=== PATIENT | male | born 1990 | race Caucasian/White ===

== ENCOUNTER 2025-05-03 21:41 | Emergency (ER) | payer OTHER, SELFPAY ==
[2025-05-03 21:44] VITALS: BP 147/77; PULSE 86; RESP 16; TEMP 36.8; O2SAT 98; BMI 26.2
--- OUTSIDE RECORDS SUMMARY | 2025-05-03 23:07 | XMS_ITS | Clinical Summary ---
Author Organization [facility] Address [address] [place] [id number] Care Team Providers Care Teletype Technician Name Role Phone Emile Dyer MD Primary Care Provider [phone] Allergies No known active allergies Medications EPINEPHrine (EPIPEN/ADRENAC LICK/OR ANY BX GENERIC EQUIV) 0.3 MG/0.3ML injection 2-packIndicatio ns:Allergy to bee sting Inject 0.3 mLs (0.3 mg) into the muscle as needed for anaphylaxis 0.6 mL 1 8 Active cetirizine (ZYRTEC) 10 MG tabletIndicatio ns:Acute seasonal allergic rhinitis due to pollen Take 1 tablet (10 mg) by mouth every evening 90 tablet 1 8 Active fluticasone (FLONASE) 50 MCG/ACT sprayIndication s:Acute seasonal allergic rhinitis due to pollen [place] 1-2 sprays into both nostrils daily 1 Bottle 11 8 Active meclizine (ANTIVERT) 25 MG tabletIndicatio ns:Labyrinthiti s of both ears Take 1 tablet (25 mg) by mouth 3 times daily as needed for dizziness 30 tablet 0 Active ondansetron (ZOFRAN) 4 MG tabletIndicatio ns:Labyrinthiti s of both ears Take 1 tablet (4 mg) by mouth every 6 hours as needed for nausea 18 tablet 0 Active sertraline (ZOLOFT) 50 MG tabletIndicatio ns:Anxiety Take 1 tablet (50 mg) by mouth daily 90 tablet 0 Active Active Problems Problem Noted Date Diagnosed Date Anxiety 05/20/2020 Acute seasonal allergic rhinitis due to pollen 0 04/25/2018 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 Immunizations Immunization Administration Dates Next Due HIB (PRP-T) 11/08/1991,06/18/1991,01/02/1991 ,1990 HepB 06/22/2004,09/16/2003,04/15/2003 Historical DTP/aP 03/19/1992,06/18/1991,01/02/19 91,1990 MMR (MMRII) 04/15/2003,11/08/1991 OPV, trivalent, live 03/19/1992,01/02/1991,10/13 TD,PF 7+ (Tenivac) 04/15/2003 TDAP Vaccine (Adacel) 04/25/2018 Family History Medical History Relation Comments Hyperlipidemia Father Coronary Artery Disease Maternal Grandfather Anxiety Disorder Mother Depression Mother Prostate Cancer Paternal Grandfather Anxiety Disorder Sister 1 No Known Problems Sister 2 Breast Cancer No family hx of Cerebrovascular Disease No family hx of Colon Cancer No family hx of Diabetes No family hx of Hypertension No family hx of Relation Status Comments Father Alive Maternal Grandfather Mother Alive Paternal Grandfather Sister 1 Alive Sister 2 Alive Social History Tobacco Use Types Packs/Day Years Used Date Smoking Tobacco: Never Smokeless Tobacco: Never Alcohol Use Standard Drinks/Week Comments No 0 (1 standard drink = 0.6 oz pur e alcohol) PHQ-2 Answer Date Recorded PHQ-2 Score 0 11/07/2018 Adolescent Education Answer Date Record ed Getting School Help Needed Not on file 08/07 Sex and Gender Information Value Date Recorded Sex Assigned at Not on file Legal Sex Male 3:17 AM [employer]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 Gender Identity Not on file Sexual Orientation Not on file Occupation Industry Job Start Date Job End Date [place] [employer] Not on file Not on file Not on file Last Filed Vital Signs Vital Sign Reading Time Taken Comments Blood Pressure 124/88 05/20/2020 11:20 AM CDT Pulse 86 05/20/2020 11:20 AM CDT Temperature 36.1 C (96.9 F) 05/20/2020 11:20 AM CDT Respiratory Rate 18 05/15/2020 9:51 AM CDT Oxygen Saturation 100% 05/20/2020 11:20 AM CDT Inhaled Oxygen Concentration - - Weight 83.9 kg (185 lb) 05/20/2020 11:20 AM CDT Height 188 cm (6' 2) 05/20/2020 11:20 AM CDT Body Mass Index 23.75 05/20/2020 11:20 AM CDT Plan of Treatment Not on file Insurance [facility] Care Teams Teletype Technician Relationship Specialty Start Date End Date Emile Dyer MD PCP - General Family Practice 04/25/18
--- OUTSIDE RECORDS SUMMARY | 2025-05-03 23:07 | XMS_ITS | Clinical Summary ---
Author Organization [facility] Address [address] [place] [id number] Care Team Providers Care Paper Steamer Name Role Phone Emile Frias MD Primary Care Provider [phone] Allergies No known active allergies Medications ADDERALL XR 10 MG 24 HR CAP take 1 capsule (10mg) by oral route once daily in the morning upon awakening 30 0 8 Active ADDERALL XR 20 MG 24 HR CAP take 1 capsule (20 mg) by oral route once daily in the morning upon awakening 30 0 8 Active EPINEPHrine (EPIPEN) 0.3 mg/0.3 mL auto-injectorI ndications:Bee sting, accidental or unintentional, initial encounter Inject 0.3 mg (1 Pen) intramuscular each time if needed for Allergic Reaction. 2 Each 1 3 Active loratadine (CLARITIN) 10 mg tabletIndicati ons:Bee sting, accidental or unintentional, initial encounter Take 1 Tablet (10 mg) by mouth once daily. 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[employer] Gender Identity Not on file Sexual Orientation Not on file Obstetrics History Last Filed Vital Signs Vital Sign Reading Time Taken Comments Blood Pressure 147/79 09/15/2023 12:25 PM [employer] Pulse 85 09/15/2023 12:25 PM [employer] Temperature 36.6 C (97.9 F) 09/15/2023 12:25 PM [employer] Respiratory Rate 18 09/15/2023 12:25 PM [employer] Oxygen Saturation 96% 09/15/2023 12:25 PM [employer] Inhaled Oxygen Concentration - - Weight 93 kg (205 lb) 09/15/2023 12:25 PM [employer] Height 188 cm (6' 2) 09/15/2023 12:25 PM [employer] Body Mass Index 26.32 09/15/2023 12:25 PM [employer] Plan of Treatment Health Maintenance Due Date Last Done Comments Tetanus booster 2001 Depression screening for age 12+ 2002 HIV for age 15-65 2005 BMI (ht and wt on same day) for age 18+ 2008 Hepatitis C screening for ag e 18-79 2008 Hepatitis B series for 19+ ( 1 of 3 - 19+ 3-dose series) 2009 COVID-19 vaccine series ( - 2023- season) 2024 Influenza Vaccine (#1) 2025 Pneumococcal series for age 6-49 Aged Out No longer eligible based on patient's age to complete this topic Care Teams Paper Steamer Relationship Specialty Start Date End Date Emile Frias MD [facility] [place], [place] [id number] PCP - General 12/06/06
== END 2025-05-03 23:11 | disposition left against medical advice (07) ==
LOC: ED 23:05
DX: Z53.21 Procedure and treatment not carried out due to patient leaving prior to being seen by health care provider (principal)